=== PATIENT | male | born 1990 ===

== ENCOUNTER 2023-07-11 22:52 | Emergency (ER) | payer SELFPAY ==
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
[2023-07-11 23:10] VITALS: BP 95/71; PULSE 124; RESP 22; TEMP 37.3; O2SAT 97; BMI 42.3
[2023-07-11 23:29] VITALS: BP 142/104; PULSE 122; RESP 15; TEMP 36.7; O2SAT 98
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
[2023-07-12] MEDS: Diphth,Pertus(ACell),Tet Adult 0.5 ML SYRINGE IM (00:10)
[2023-07-12] MEDS: Fluorescein Sodium STRIP 1 STRIP EYE-BOTH (00:10)
[2023-07-12 00:11] LABS: MANUAL DIFF FLAG NO
[2023-07-12] MEDS: Tetracaine HCl/PF 0.5% Oph Sol 4 ML DROPS 1 DROP EYE-BOTH (00:11)
[2023-07-12 00:12] LABS: Basophils Absolute Auto 0.1 X10*3/uL (0.0-0.2); Basophils Percent Auto 0.3 % (0-2); Eosinophils Absolute Auto 0.1 X10*3/uL (0.0-0.4); Eosinophils Percent Auto 0.4 % (0-4); Hematocrit 40.6 % (42.0-52.0); Hemoglobin 14.3 g/dl (14.0-18.0); Imm Gran Abs Auto 0.09 X10*3/uL (0.00-0.03); Imm Gran Pct Auto 0.5 % (0.0-0.4); Lymphocytes Absolute Auto 2.9 X10*3/uL (1.2-4.9); Lymphocytes Percent Auto 15.5 % (20-40); Mean Corpuscular HGB Conc 35.2 g/dl (31.0-36.0); Mean Corpuscular Hemoglobin 29.2 pg (27.0-33.0); Mean Corpuscular Volume 82.9 fL (80.0-98.0); Mean Platelet Volume 9.8 fL (9.4-12.4); Monocytes Absolute Auto 1.2 X10*3/uL (0.1-1.2); Monocytes Percent Auto 6.5 % (2-11); Neutrophils Absolute Auto 14.1 x10*3/uL (2.0-8.3); Neutrophils Percent Auto 76.8 % (45-73); Platelet Count 292 X10*3/uL (160-400); Red Cell Distribution Width 13.7 % (11.0-16.0); White Blood Count 18.3 X10*3/uL (4.8-10.8)
[2023-07-12] MEDS: 0.9 % Sodium Chloride 1,000 ML 999 ML IV ×2 (00:12→02:01)
[2023-07-12 00:17] LABS: Prothrombin Time 11.9 SEC (11.1-13.3)
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
[2023-07-12 00:31] LABS: Alanine Aminotransferase 30 U/L (0-40); Albumin Level 4.6 g/dL (3.5-5.0); Alkaline Phosphatase 118 U/L (39-117); Anion Gap 11 (12-20); Aspartate Amino Transferase 34 U/L (5-37); Bilirubin Direct 0.1 mg/dL (0.0-0.5); Bilirubin Total 0.3 mg/dL (0.0-1.0); Blood Urea Nitrogen 16 mg/dL (9-16); Calcium 9.2 mg/dL (8.4-10.2); Carbon Dioxide 25 mmol/L (22-29); Chloride 107 mmol/L (96-108); Creatinine Clr Calc Pharmacy 113.9; Estimated Glomerular Filt Rate > 60; Glucose Random 120 mg/dL (60-115); Lipase 18 U/L (8-78); Magnesium 2.3 mg/dL (1.6-2.6); Potassium 3.4 mmol/L (3.3-5.1); Sodium 140 mmol/L (135-145); Total Protein 7.8 g/dL (6.5-8.0)
[2023-07-12 00:32] LABS: Ethanol < 10 mg/dL
[2023-07-12] MEDS: iohexoL 350 MG/ML 100 ML INFUS..BTL IV (00:38)
[2023-07-12 00:41] LABS: Influenza A PCR NEGATIVE (Negative); Influenza B PCR NEGATIVE (Negative); Resp Syncy Virus RNA Qual PCR NEGATIVE (Negative); SARS COV2 PCR INHOUSE NEGATIVE (Negative)
[2023-07-12] MEDS: Lidocaine HCl 1 % MPF 5 ML VIAL SUBCUT (01:16)
[2023-07-12] MEDS: Erythromycin Base 0.5% Oph Oin 1 GM TUBE 1 CM EYE-BOTH (01:18)
--- NOTE | 2023-07-12 03:00 | PC.NURSE ---
Patient is alert and oriented x3, VSS. He reports generalized pain 4/10 at present, at tolerable level. Second bag of 1 L NS infusing w/o issues. C-collar removed per MD order. Patient's friend at bedside, call landaverde within patient's reach.
--- NOTE | 2023-07-12 03:40 | PC.NURSE ---
Per Dr. Delgado, blood darw for second type and screen not needed at this time.
[2023-07-12 04:03] VITALS: BP 140/77; PULSE 88; RESP 16; TEMP 36.8; O2SAT 98
[2023-07-12 04:07] VITALS: BP 140/77; PULSE 88; RESP 16; TEMP 36.8; O2SAT 98
== END 2023-07-12 04:08 | disposition home or self-care (01) ==
PROVIDERS: Emergency Provider Emergency Medicine
DX: S01.81XA Laceration without foreign body of other part of head, initial encounter (principal); S00.81XA Abrasion of other part of head, initial encounter; R51.9 Headache, unspecified; M54.2 Cervicalgia; M25.562 Pain in left knee; M25.561 Pain in right knee; R11.2 Nausea with vomiting, unspecified; R10.2 Pelvic and perineal pain; M25.572 Pain in left ankle and joints of left foot; M79.641 Pain in right hand; R07.89 Other chest pain; V43.52XA Car driver injured in collision with other type car in traffic accident, initial encounter; Y93.9 Activity, unspecified; Y92.410 Unspecified street and highway as the place of occurrence of the external cause; Y99.8 Other external cause status; Z11.52 Encounter for screening for COVID-19; Z20.822 Contact with and (suspected) exposure to COVID-19; Z23 Encounter for immunization; Z79.899 Other long term (current) drug therapy
CPT/HCPCS: 0241U; 12054; 36415; 70450; 70486; 71260; 72125; 73110; 73130; 73564; 73590; 73610; 73630; 74177; 80048; 80076; 80307; 82550; 83690; 83735; 85025; 85610; 86850; 86900; 86901; 90471; 90715; 96360; 96361; 99284; Q9967